=== PATIENT | female | born 1975 | race Hispanic/Latino ===

== ENCOUNTER 2020-09-10 15:15 | Emergency (ER) | payer OTHER ==
[~2020-09-10] VITALS: Ht 157.5 cm; Wt 54.0 kg
[~2020-09-10 15:15] MED LIST: NAPROSYN500 MG OR
[2020-09-10] MEDS ORDERED: BACTROBAN TOP (16:16)
[2020-09-10] MEDS ORDERED: KEFLEX500 MG PO (16:16)
[2020-09-10 16:38] VITALS: BP 120/71
== END 2020-09-10 16:38 | disposition home or self-care (01) | DRG 605 ==
LOC: ED 15:15
DX: S61.112A Laceration without foreign body of left thumb with damage to nail, initial encounter (principal); E11.9 Type 2 diabetes mellitus without complications; W29.8XXA Contact with other powered hand tools and household machinery, initial encounter; Y93.89 Activity, other specified; Y92.89 Other specified places as the place of occurrence of the external cause; Y99.0 Civilian activity done for income or pay